=== PATIENT | male | born 1980 | race Caucasian/White ===

== ENCOUNTER 2024-11-12 13:05 | Day surgery (SDC) | payer OTHER, SELFPAY ==
--- NOTE | 2024-11-12 | PATH_ITS ---
[facility] Accession Number: [id number] No. of containers..02 Tissue . 01 Material submitted: . PART A: colon - POLYP @ 70 X2 PART B: rectum - RECTAL POLYP . 01 Diagnosis: A. COLON POLYPS AT 70 CM: Sessile serrated adenoma x1. Hyperplastic polyp x1. . B. RECTAL POLYP: Tubular adenoma. [facility] 11/24/2024 1201 Local . 01 Electronically signed: . Jorden Nobles MD, PhD, Pathologist NPI- [id number] . 01 Gross description: . A. Received in formalin with two identifiers and polyp at 70, are three long soft tissue fragments ranging from 1.5 x 0.4 x 0.3 cm to 0.4 x 0.4 x 0.3 cm. The fragments are submitted intact in A1. B. Received in formalin with two identifiers and rectum polyp, are six long soft tissue fragments, 0.3 to 0.6 cm in greatest dimension, submitted in B1. ([id number]) /MRV 11/21/2024 1734 Local . 01 Pathologist provided ICD-10: D12.6, D12.8 . 01 CPT . 105478, [id number] Specimen Comment: A courtesy copy of this report has been sent to [phone] Performed at: [address] [facility] [address], [place], [place] [id number] MD Art Salvador MD Phone: [phone]
--- NOTE | 2024-11-12 12:00 | PM.OP.COLON ---
Operative Date/Time/Diagnoses Date of procedure: 11/12/24 Time of procedure: 14:40 Pre-op diagnosis: See indication and findings Post-op diagnosis: same Procedure & Clinicians Study performed: Colonoscopy Same procedure(s) as scheduled: Yes Surgeon: Chandrika Levine Anesthesia Type: Other Procedure Notes Procedure in detail: After informed consent was obtained the patient was placed in left lateral decubitus position. The video colonoscope was introduced the rectum slowly advanced cecum. On slow withdrawal mucosa was carefully examined. The scope was removed. The patient tolerated the procedure well. Blood loss none Complications none Sedation mac Findings 1. 2 polyps, 8 mm and 10 mm found at 70 cm. Both snared and retrieved. 2. One point 2 cm pedunculated polyp in the rectum hot snared and removed completely 3. Mild moderate diverticulosis in the left colon 4. Otherwise negative colonoscopy to cecum Patient should have follow-up colonoscopy in 1 year. We will be following up with him on the pathology.
[2024-11-12 13:31] VITALS: BP 121/84; PULSE 79; RESP 17; TEMP 36.3; O2SAT 95
[2024-11-12] MEDS: LACTATED RINGERS 1,000 ML 42 ML IV (13:48)
--- NOTE | 2024-11-12 13:54 | PM.HP.IH.1 ---
History of Present Illness History of Present Illness Date Patient Seen: 11/12/24 Chief complaint: Screening Colonoscopy Narrative: First screening colonoscopy PFSH Social History alcohol intake: never Meds Home Medications and Allergies Home Medications ?Medication ?Instructions ?Recorded ?Confirmed ?Type hydrochlorothiazide 12.5 mg tablet 12.5 mg PO DAILY 11/12/24 11/12/24 History simvastatin 10 mg tablet 10 mg PO ONCE PM 11/12/24 11/12/24 History valsartan 160 mg tablet 160 mg PO DAILY 11/12/24 11/12/24 History Allergies Allergy/AdvReac Type Severity Reaction Status Date / Time No Known Drug Allergies Allergy Verified 11/12/24 13:26 Exam Vital Signs (past 8 hours): - 11/12/24 13:31 Temperature 97.3 F L Pulse Rate 79 Respiratory Rate 17 Blood Pressure 121/84 Pulse Oximetry 95 Oxygen Delivery Method Room Air Oxygen Delivery Method Room Air Narrative Exam Narrative: Oropharynx free of lesions Chest clear to auscultation percussion Cardiac exam reveals no S3 or murmur Assessment & Plan Assessment & Plan narrative: Need for 1st screening colonoscopy. Risks, benefits, alternatives have been explained. Time-Based Coding :: [TOTAL MINUTES] spent with patient and on the chart (including review of chart, obtaining history, exam, reviewing outside data, placing orders, documenting exam and treatment plan, and counseling patient) on [DATE]. [employer]EE [employer] Document charge(s): No
[2024-11-12 14:43] VITALS: BP 114/69; PULSE 90; RESP 22; TEMP 36.4; O2SAT 94
[2024-11-12 14:48] VITALS: BP 115/70; PULSE 94; RESP 20; O2SAT 96
== END 2024-11-12 14:57 | disposition home or self-care (01) ==
PROVIDERS: Referring Provider Internal Medicine Gastroenterology; Visit Provider Internal Medicine Gastroenterology
PROC: 0DJD8ZZ Inspection of Lower Intestinal Tract, Via Natural or Artificial Opening Endoscopic (ICD-10-PCS; CPT 45378; principal; 2024-11-12 14:00)
DX: Z12.11 Encounter for screening for malignant neoplasm of colon (principal); D12.8 Benign neoplasm of rectum; D12.6 Benign neoplasm of colon, unspecified; K63.5 Polyp of colon; K57.30 Diverticulosis of large intestine without perforation or abscess without bleeding; I10 Essential (primary) hypertension; E78.5 Hyperlipidemia, unspecified; E66.9 Obesity, unspecified; Z87.891 Personal history of nicotine dependence; Z86.718 Personal history of other venous thrombosis and embolism
CPT/HCPCS: 45385; J2704